=== PATIENT | female | born 1980 | race Caucasian/White ===

== ENCOUNTER 2017-05-04 11:25 | Emergency (ER) | payer OTHER ==
[2017-05-04 13:16] LABS: BLOOD UREA NITROGEN 12 mg/dL (7-18); CARBON DIOXIDE 26 mmol/L (21-32); CREATININE 0.6 mg/dL (0.6-1.3); GLUCOSE,RANDOM 97 mg/dL (70-99); POTASSIUM 3.7 mmol/L (3.5-5.1); SODIUM 141 mmol/L (136-145)
== END 2017-05-04 16:30 | disposition home or self-care (01) ==
LOC: ER 11:25
PROVIDERS: General Practice
DX: R07.89 Other chest pain (principal); R79.1 Abnormal coagulation profile; F17.210 Nicotine dependence, cigarettes, uncomplicated; Z79.899 Other long term (current) drug therapy; Z88.5 Allergy status to narcotic agent; Z88.6 Allergy status to analgesic agent
CPT/HCPCS: 36415; 71250; 80048; 84703; 85379; 93005; 96374; 99070; 99285-25